=== PATIENT | female | born 1995 | race African-American/Black ===

== ENCOUNTER 2018-11-21 10:21 | Emergency (ER) | payer MEDICAID ==
[~2018-11-21] VITALS: Ht 175.3 cm; Wt 96.2 kg
[2018-11-21 10:31] VITALS: BP 114/59
[2018-11-21] MEDS ORDERED: OLANZAPINE 5 MG TABLET ONE (10:59)
[2018-11-21] MEDS ORDERED: OLANZAPINE 5 MG TABLET PO ONE (11:00)
--- NOTE | 2018-11-21 11:28 | NUR ---
Patient discharged to home in stable condition. Written and verbal after care instructions given. Patient verbalizes understanding of instruction.
== END 2018-11-21 11:29 | disposition home or self-care (01) ==
LOC: ER 10:28
DX: F41.0 Panic disorder [episodic paroxysmal anxiety] (principal); Z88.8 Allergy status to other drugs, medicaments and biological substances; Z60.2 Problems related to living alone